=== PATIENT | female | born 1965 | race Caucasian/White ===

== ENCOUNTER → 2016-09-17 | Outpatient (CLI) | payer BC ==
[~2016-09-17] MED LIST: AMLO10TA2 PO; ASPI-557 PO; ESCI20TA30 PO; MONT10TA15 PO; MV-M1TAB18 PO; OLME1TAB10 PO; PRAV40TA3 PO; RANI150T7 PO
== END ==
LOC: WC.BC 15:00
DX: Z12.31 Encounter for screening mammogram for malignant neoplasm of breast (principal); N64.59 Other signs and symptoms in breast
CPT/HCPCS: 77063; G0202

== ENCOUNTER 2017-02-22 07:30 | Inpatient (IN) ==
[2017-03-10] MEDS ORDERED: LIDOCAINE 1% (10mg/ml) 2mL INJ PF SDV ID ONE (06:00)
[2017-03-10] MEDS ORDERED: NOZIN NASAL SWAB NAS ONE ×2 (06:00→14:01)
[2017-03-10] MEDS ORDERED: DEXAMETHASONE 4 MG/ML INJECTION IVP ONE (06:00)
[2017-03-10] MEDS ORDERED: CLINDAMYCIN PB 900 MG/50 ML BAG IV ONE (06:00)
[2017-03-10] MEDS ORDERED: FAMOTIDINE PB 20 MG/50 ML BAG IV ONE (06:00)
[2017-03-10] MEDS ORDERED: ACETAMINOPHEN 500 MG TABLET PO ONE (06:00)
[2017-03-10] MEDS ORDERED: ONDANSETRON 4 MG/2 ML INJECTION IVP ONE (06:00)
[2017-03-10] MEDS ORDERED: METOCLOPRAMIDE 10mg/2ml INJECTION IVP ONE (06:00)
[2017-03-10] MEDS ORDERED: EPINEPHrine PF 0.25 MG, BUPIVACAINE 0.25% PF 30 ML, MORPHINE SULFATE 15 MG, KETOROLAC I... OPSITE ONE (08:00)
[2017-03-10 08:26] VITALS: BMI 41.7
[2017-03-10] MEDS: LR 1,000 ML IV SCH ×2 (08:55→11:55)
--- NOTE | 2017-03-10 10:15 | Anesthesia Preoperative Report ---
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 Proposed Procedure: Right Total Knee Replacement NPO Since Date: 03/10/17 NPO Since Time: 00:00 Allergies/Adverse Reactions: Allergies Allergy/AdvReac Type Severity Reaction Status Date / Time Penicillins Allergy Mild RASH Verified 03/10/17 08:32 levofloxacin Allergy Unknown Rash Verified 03/10/17 08:32 tetracycline AdvReac Unknown Gastrointestinal Verified 03/10/17 08:32 Upset - Vital Signs Vital Signs: Temperature 97.7 F 03/10/17 08:26 Pulse Rate 76 03/10/17 08:39 Respiratory Rate 20 03/10/17 08:26 Blood Pressure 147/72 H 03/10/17 08:26 Pulse Oximetry 97 03/10/17 08:26 Height and Weight: Height 5 ft 3.5 in Weight 108.6 kg Body Mass Index 41.7 - Medications Inpatient Medications: Current Medications Lactated Ringer's (Lactated Ringers) 1,000 mls @ 50 mls/hr IV .Q20H PROSPER Last Admin: 03/10/17 08:55 Dose: 50 mls/hr Tranexamic Acid 1,000 mg/ (Sodium Chloride) 110 mls @ 0 mls/hr TOP INTRAOP ONE PRN Reason: As Directed Stop: 03/10/17 16:05 Sodium Chloride (Iv Flush) 10 - 80 ml IV PRN PRN PRN Reason: [place] Home Medications: Home Medications Medication Instructions Recorded Confirmed Type Montelukast Sodium [Singulair] 10 mg PO HS #0 03/09/11 03/10/17 History Amlodipine Besylate 10 mg PO 1000 #0 tab 09/10/15 03/10/17 History Aspirin [Aspir 81] 1 tab PO HS #0 tab 09/10/15 03/10/17 History Escitalopram Oxalate 1 tab PO 1000 #0 tab 09/10/15 03/10/17 History Multivitamin [Multi-Day Vitamins] 1 tab PO 1000 #30 tab 09/29/16 03/10/17 History [place]-3 Fatty Acids [Fish Oil] 1 cap PO DAILY #0 09/29/16 03/10/17 History Olmesartan/Hydrochlorothiazide 1 each PO 1000 02/16/17 03/10/17 History [Benicar Hct 40-12.5 mg Tablet] Protonix (Pantoprazole)40 mg 40 mg PO DAILY tab 02/16/17 03/10/17 History tablet,delayed release cholecalciferol (vitamin D3) 5,000 5,000 unit PO 1000 tab 02/16/17 03/10/17 History unit tablet Is Patient on Beta Todd?: No - Medical History Respiratory: Reports: Asthma (well controlled with singulair) Cardiovascular: Reports: Hypertension Gastrointestional: Reports: Gastroesophageal Reflux Disease (well controlled with meds), Morbid Obesity Neuro/Musculoskeletal: Reports: Back Problems (sacral pain) Renal/Endocrine: Reports: Diabetes Mellitus Type 2 (Pre-diabetes) - Surgical History GI Surgery/Treatments: Reports: Colonoscopy (polyps) Musculoskeletal Surgery/Tx: Reports: Knee Arthroscopy (x2), Other (ganglion of wrist) Reproductive Surgery/Treatment: Reports: Hysterectomy (robotic 2010) Anesthesia Reactions: None Hx Family Anesthesia Reaction: No History of Motion Sickness: No - Social History Smoking Status: Former smoker Substance Use Type: does not use - Pertinent Findings Laboratory: CBC and BMP 03/10/17 08:37 EKG: Sinus Rhythm - Physical Exam Respiratory Exam: Present: lungs clear, bilateral breath sounds equal Cardiovascular Exam: Present: regular rate and rhythm, no murmur - Airway Assessment Mallampati Score: II TMD: 2 Fingerbreadths Neck Extension: fair Overall Assessment: may be difficult intubation - Plan Anesthesia: Neuroaxial Regional/Trunk Block: Spinal - Discussion Discussion: Discussed risks/options/alternatives of anesthesia and questions answered. Patient consents. Nursing pain assessment noted. Present for Discussion: family member Attestation Statement: Prior to the delivery of any anesthetic medication, I examined the patient, developed the plan, obtained the patient's consent and discussed the risk and benefits of the procedure with the patient/guardian. - Additional Information Seen by Anesthesia: Yes
[2017-03-10] MEDS ORDERED: PROPOFOL 500 MG/50 ML VIAL IV ONE (10:27)
[2017-03-10] MEDS ORDERED: MIDAZOLAM 2mg/2ml INJECTION ONE (10:59)
[2017-03-10] MEDS ORDERED: FentaNYL 100 MCG/2 ML INJECTION ONE (11:00)
[2017-03-10] MEDS ORDERED: KETAMINE 500 MG/10 ML INJECTION ONE (11:09)
[2017-03-10] MEDS ORDERED: VANCOMYCIN 1,000 MG INJECTION IAR ONE (11:57)
--- NOTE | 2017-03-10 12:35 | Operative Note ---
- Procedure Preoperative Diagnosis: Right knee primary degenerative joint disease Postoperative Diagnosis: Same as preoperative diagnosis. Surgeon: Rubén Gallegos MD Senior Staff Consultant: Alex Palomino Complications: None. Anesthesia: TIVA Estimated Blood Loss: See Anesthesia Record. Fluids: Please see Anesthesia Record. Description of Procedure: Mrs. Knowles and her right knee were identified and marked in the preoperative holding area. She was brought back to the operating suite after a saphenous nerve block was placed in the preoperative holding area. Spinal anesthetic was administered and she was placed supine on the operating table. The right lower extremity was prepped and draped in my normal sterile fashion. Timeout was performed. The [employer] robot was used during the surgery. She had a fixed varus deformity with flexion contracture of approximately 10. A standard anterior midline incision followed by medial parapatellar arthrotomy was performed. Anterior fat pad and meniscus were removed. The patella was resurfaced to a size 32. Tibial and femoral arrays were placed both within the original incision. Checkpoints were then placed both in the femur and the tibia. The bone was then registered with the [employer] robot. Osteophytes were removed and gaps were captured both 90 and 0 with correction. [employer] robotic software was used to manipulate the components by adding 1 of varus to the femur and 2 of varus to the tibia. We also dropped the tibia as well as taken one extra millimeter distal femoral bone. The [employer] robotic arm was then used to assist with the bone cuts. Posterior osteophytes and remaining meniscus were removed. Trial components were placed. We used a 3 femur and a 3 tibia with a 9 mm spacer. She tracked well and was well balanced throughout range of motion. The leg was exsanguinated and the tourniquet inflated to 250 mmHg. The bone was prepared for cementing and components were cemented into place and allowed to cure in extension. The tourniquet was let down and hemostasis obtained with electrocautery. The knee was ranged one more time to ensure good stability, balance and patellar tracking. 1 g of TXA was allowed to sit in the wound for 5 minutes and then suctioned out. 1 g of vancomycin powder was then placed into the knee joint. The capsulotomy was then closed with #1 Vicryl. I then left my employment assistant to close the subcutaneous tissue with 2-0 Vicryl. Running 4-0 Monocryl will be used in the subcuticular layer. Dermabond will be used on the skin followed by sterile dressing. After drapes are removed patient will be taken to recovery room under the care of anesthesia.
[2017-03-10] MEDS ORDERED: HYDROMORPHONE 2 MG/ML INJECTION ONE (12:44)
[2017-03-10] MEDS ORDERED: PROPOFOL 0 ML ONE (12:51)
[2017-03-10] MEDS ORDERED: PROPOFOL 1,000 MG/100 ML VIAL IV ONE (12:55)
--- NOTE | 2017-03-10 13:14 | Anesthesia Procedure Note ---
Peripheral Nerve Blockade - Procedure Physician: Zuhair Gallegos MD Date: 03/10/17 Surgical Procedure: Right total Knee replacement Discussion: Discussed risks/options/alternatives of anesthesia and questions answered. Patient consents. Nursing pain assessment noted. Block Start: 13:08 Block Stop: 13:10 Blocked Employed: Adductor Canal Indication: Post-Operative Pain Approach: Right Side Confirmed Position: Supine Patient: Consent, Risks/Benefits Discussed, Informed, Post Block Act. Discussed IV Sedation: No Sedation: Awake Initial Vital Signs: Temperature 97.7 F 03/10/17 08:26 Temperature Source Oral 03/10/17 08:26 Pulse Rate 84 03/10/17 08:26 Respiratory Rate 20 03/10/17 08:26 Blood Pressure 147/72 H 03/10/17 08:26 Blood Pressure Mean 97 03/10/17 08:26 Blood Pressure Position Sitting 03/10/17 08:26 Pulse Oximetry 97 03/10/17 08:26 Oxygen Delivery Method 03/10/17 08:26 Post Vital Signs: Temperature 97.7 F 03/10/17 08:26 Pulse Rate 76 03/10/17 08:39 Respiratory Rate 20 03/10/17 08:26 Blood Pressure 147/72 H 03/10/17 08:26 Pulse Oximetry 97 03/10/17 08:26 Initial Pain Pain Score: 3 Post Block Pain Score: 2 Ultrasound Used?: Yes - Injectate Ropivacaine (%): 0.5 Ropivacaine (mL): 25 Was Epi 1:200,000 Used?: No Injection: Injection made incrementally with constant monitoring and aspiration every ml
[2017-03-10] MEDS ORDERED: DiphenhydrAMINE 50 MG/ML INJECTION IVP PRN ×2 (13:27→14:01)
[2017-03-10] MEDS ORDERED: ONDANSETRON 4 MG/2 ML INJECTION IVP PRN (13:27)
[2017-03-10] MEDS: HYDROMORPHONE 2 MG/ML INJECTION IVP PRN ×2 (13:30→13:42)
[2017-03-10] MEDS ORDERED: WARFARIN - PHARMACY CONSULT MC ONE ×2 (14:01→14:15)
[2017-03-10] MEDS ORDERED: LORazepam 1 MG TABLET PO PRN (14:01)
[2017-03-10] MEDS ORDERED: INSULIN ASPART 100unit/ml INJECTION SQ PRN (14:01)
--- NOTE | 2017-03-10 14:07 | XRay Report ---
EXAM: XR knee RT 2V HISTORY: postoperative image TECHNIQUE: Two views of the right knee were obtained. ENCOUNTER: Initial COMPARISON: No prior studies available for comparison. FINDINGS: There is a right total prosthesis in place, the radiopaque components of the right total knee prosthesis appear to be in good position showing no evidence of loosening or failure. The osseous structures are normal density showing no acute fractures or focal destructive lesions. There is mild soft tissue swelling about the right knee and subcutaneous emphysema which appears postsurgical in etiology. A small knee joint effusion is present. IMPRESSION: 1. Status post right total knee arthroplasty. 2. Subcutaneous emphysema and mild soft tissue swelling which appears postsurgical in etiology. 3. Small suprapatellar bursa effusion. .
[2017-03-10] MEDS: PANTOPRAZOLE 40 MG TABLET PO SCH (14:22)
[2017-03-10] MEDS: NOZIN NASAL SWAB NAS SCH ×2 (14:24→23:00)
[2017-03-10] MEDS: NS 1,000 ML IV SCH (14:31)
[2017-03-10] MEDS: ACETAMINOPHEN 325 MG TABLET PO SCH ×3 (14:32→20:45)
--- NOTE | 2017-03-10 14:59 | Pharmacy Consult ---
Pharmacy Consult-Warfarin - Consult Information COUMADIN CONSULT (Initial): Dx: History of DVT Baseline INR = n/a, goal INR of 2.0 - 2.5 Will give Warfarin 5mg today. Thank you.
[2017-03-10] MEDS ORDERED: FALL RISK - PHARMACY CONSULT XX ONE (15:02)
[2017-03-10] MEDS: Oxycodone *IR* 5 MG TABLET PO PRN ×2 (15:46→20:46)
[2017-03-10] MEDS ORDERED: WARFARIN 5 MG TABLET PO ONE (16:00)
[2017-03-10] MEDS ORDERED: TRANEXAMIC ACID 1,000 MG in NS 100 ML TOP ONE (16:04)
[2017-03-10] MEDS ORDERED: SALINE FLUSH 10ml SYRINGE IV PRN (16:04)
[2017-03-10] MEDS ORDERED: ROPIVACAINE 0.5% (5mg/ml) 30ml INJ ONE (16:10)
[2017-03-10] MEDS: CLINDAMYCIN PB 900 MG/50 ML BAG IV SCH ×2 (17:02→23:01)
--- NOTE | 2017-03-10 20:28 | Anesthesia Postoperative Note ---
- Date and Time Date: 03/10/17 Time: 20:27 - Status Patient Participated in Evaluation: Patient Participated in Person Vital Signs: Temperature 96.2 F L 03/10/17 14:25 Pulse Rate 67 03/10/17 17:42 Respiratory Rate 14 03/10/17 16:22 Blood Pressure 120/66 03/10/17 17:42 Pulse Oximetry 93 03/10/17 17:42 Respiratory Function: Airway Patent Cardiovascular Function: Regular Pulse Mental Status: Lethargic (pt complains of being overly drowsy) Pain Intensity: 4 Hydration: Taking PO Fluids Complications During Recover: None Apparent - Follow-Up Instructions Instructions: Per Surgeon
[2017-03-10] MEDS: DOCUSATE SODIUM 100 MG CAPSULE PO SCH (20:45)
[2017-03-10] MEDS: MONTELUKAST 10 MG TABLET PO SCH (20:45)
[2017-03-10] MEDS: SENNOSIDES 8.6 MG TABLET PO SCH (20:45)
[2017-03-10] MEDS: ENOXAPARIN 40 MG/0.4 ML INJECTION SQ SCH (20:46)
[2017-03-11] MEDS ORDERED: RANITIDINE 150 MG TABLET PO ONE (01:21)
[2017-03-11] MEDS ORDERED: CALCIUM CARBONATE Chewable 500mg TABLET PO PRN (01:23)
[2017-03-11] MEDS ORDERED: MAG-AL + SIM ORAL LIQUID 30ml PO PRN (01:23)
[2017-03-11] MEDS: NS 1,000 ML IV SCH ×3 (03:44→15:38)
[2017-03-11] MEDS: CLINDAMYCIN PB 900 MG/50 ML BAG IV SCH (03:44)
[2017-03-11] MEDS: Oxycodone *IR* 5 MG TABLET PO PRN ×5 (03:55→23:32)
[2017-03-11] MEDS: PANTOPRAZOLE 40 MG TABLET PO SCH (08:20)
[2017-03-11] MEDS: NOZIN NASAL SWAB NAS SCH ×4 (08:20→21:16)
--- NOTE | 2017-03-11 08:27 | Orthopedic Progress Note ---
Date: Subjective/Severity of Illness: Esthela is a little groggy this AM. She states she has not been able to produce much urine. The nurse just took her to the bathroom, she missed the hat , but stated that she did have more urine production then previous. Overall, her pain is acceptable, but she has not been out of bed yet. Her BUN/Creat are WNL, IV NS was increased to 100/hr. She is taking PO well. She denies CP/SOB, dysuria, hematuria or previous kidney issues. K was 3.2 and PO replacement has been ordered with a repeat lab at noon. Orthopedic Objective PO Vital signs: Temperature 97.1 F 03/11/17 03:49 Pulse Rate 64 03/11/17 03:49 Respiratory Rate 18 03/11/17 03:49 Blood Pressure 128/67 03/11/17 03:49 Pulse Oximetry 97 03/11/17 06:05 Height and Weight: Height 5 ft 3.5 in Weight 252 lb 6.868 oz Body Mass Index 41.7 - Constitutional General Appearance: Present: alert, orientated x3, no acute distress - Respiratory Exam Present: non-labored - Cardiovascular Exam Present: pedal pulses intact Capillary Refill: < 2-3 Seconds - Abdominal Exam Absent: tenderness - Extremities Exam Extremities: Present: pulses intact, joint swelling. Absent: calf tenderness - Knee Exam Knee Exam: Present: effusion - Surgical Site Incision: Mepilex dressing intact - Integumentary Exam Present: pink, warm, dry - Lymphatic Lymphatic: Absent: lymphedema - Neurological Exam Present: intact to light touch, no deficits - Psychiatric Exam Present: normal affect - Labs Result Diagrams: 03/11/17 04:02 03/11/17 04:02 Abnormal lab results 03/10/17 03/11/17 03/11/17 Range/Units 08:37 04:02 04:02 RBC 3.23 L (4.00-5.20) M/MM3 Hgb 9.4 L D (12-16) GM/DL Hct 29.9 L D (36-46) % Lymph % (Auto) 51.0 H (23-45) % [place] % (Auto) 10.9 H (0-9.0) % Neut # (Auto) 1.7 L (1.8-7.7) T/MM3 INR 1.77 H (0.99-1.21) Sodium (134-144) MEQ/L Potassium (3.6-5) MEQ/L Chloride (98-107) MEQ/L Calculated Osmolality (261-280) MOSM/KG Calcium (8.4-10.2) MG/DL 03/11/17 Range/Units 04:02 RBC (4.00-5.20) M/MM3 Hgb (12-16) GM/DL Hct (36-46) % Lymph % (Auto) (23-45) % [place] % (Auto) (0-9.0) % Neut # (Auto) (1.8-7.7) T/MM3 INR (0.99-1.21) Sodium 146 H (134-144) MEQ/L Potassium 3.2 L (3.6-5) MEQ/L Chloride 110 H (98-107) MEQ/L Calculated Osmolality 282 H (261-280) MOSM/KG Calcium 6.1 L (8.4-10.2) MG/DL H & H 03/10/17 03/11/17 Range/Units 08:37 04:02 Hgb 12.7 9.4 L D (12-16) GM/DL Hct 38.9 29.9 L D (36-46) % Coagulation 03/11/17 Range/Units 04:02 INR 1.77 H (0.99-1.21) Orthopedic Assessment and Plan (1) Obesity, morbid, BMI 40.0-49.9 Status: Acute (2) Primary osteoarthritis of right knee Status: Acute Assessment and Plan: Lovenox/ Coumadin for DVT prevention. INR is 1.77 today. Will need to reassess before discharge to see if she needs Lovenox. PT/OT for mobility Continue pain control and bowel management Increase NS to 100/hr; give her routine Benicar; mobilize, repeat BUN/Creatine at noon. She was bladder scanned this AM after void and had 150 roughly according to verbal report from nurse. Replace her K 20meq PO BID. (3) Pre-diabetes Status: Chronic Assessment and Plan: Diabetic diet. Continue home meds (4) Vitamin D deficiency, unspecified Status: Chronic (5) Anxiety Status: Chronic Assessment and Plan: continue home meds. (6) GERD (gastroesophageal reflux disease) Status: Chronic Assessment and Plan: continue home meds (7) HTN (hypertension) Status: Chronic Assessment and Plan: continue home meds - Anticoagulation Therapy Anticoagulation: Coumadin therapy with Lovenox bridge x30 days (INR is 1.77) Hospital Course Summary Disclaimer: The visit summary below is not to be considered part of the above Progress Note.
[2017-03-11] MEDS: ONDANSETRON 4 MG/2 ML INJECTION IVP PRN ×3 (09:00→20:27)
--- NOTE | 2017-03-11 09:17 | Pharmacy Consult ---
Pharmacy Consult-Warfarin - Laboratory Information 03/11/17 04:02 INR 1.77 H - Consult Information Warfarin 2mg po ordered for noon today. Thank you.
[2017-03-11] MEDS: OLMESARTAN PO SCH (09:50)
[2017-03-11] MEDS: HCTZ PO SCH (09:50)
[2017-03-11] MEDS: DOCUSATE SODIUM 100 MG CAPSULE PO SCH ×2 (09:51→20:39)
[2017-03-11] MEDS: ACETAMINOPHEN 325 MG TABLET PO SCH ×4 (09:51→20:28)
[2017-03-11] MEDS: ESCITALOPRAM 20 MG TABLET PO SCH (09:51)
[2017-03-11] MEDS: ASPIRIN *EC* 81 MG TABLET PO SCH (09:51)
[2017-03-11] MEDS: AMLODIPINE 10 MG TABLET PO SCH (09:53)
[2017-03-11] MEDS: POLYETHYL GLYCOL 3350 17gm PACKET PO SCH (09:54)
[2017-03-11] MEDS ORDERED: WARFARIN 2 MG TABLET PO SCH (12:00)
[2017-03-11] MEDS: [UNRECOGNIZED DRUG - OTHER] PO SCH (17:12)
[2017-03-11] MEDS: ENOXAPARIN 40 MG/0.4 ML INJECTION SQ SCH (20:27)
[2017-03-11] MEDS: SENNOSIDES 8.6 MG TABLET PO SCH (20:28)
[2017-03-11] MEDS: MONTELUKAST 10 MG TABLET PO SCH (20:30)
[2017-03-11] MEDS: NAPROXEN 220 MG TABLET PO PRN (20:38)
[2017-03-12] MEDS: ONDANSETRON 4 MG/2 ML INJECTION IVP PRN (04:21)
[2017-03-12] MEDS: Oxycodone *IR* 5 MG TABLET PO PRN (04:21)
[2017-03-12] MEDS: PANTOPRAZOLE 40 MG TABLET PO SCH (06:31)
[2017-03-12] MEDS: NOZIN NASAL SWAB NAS SCH ×3 (06:31→21:18)
--- NOTE | 2017-03-12 07:04 | Pharmacy Consult ---
Pharmacy Consult-Warfarin - Laboratory Information 03/11/17 03/12/17 04:02 03:50 INR 1.77 H 1.13 - Consult Information We will give warfarin 5mg p.o. today. Not sure of INR on 03/11 so we will continue normal dosing. Thanks
--- NOTE | 2017-03-12 07:39 | Orthopedic Progress Note ---
Date: Subjective/Severity of Illness: Mrs. Knowles looks come full this morning. She is frustrated because she feels she is behind in her recovery. She is ambulating to the nurse's desk with assistance. Oxycodone is making her nauseous. She also has concerns about going home to grandmother's house with dementia. Orthopedic Objective Vital signs: Temperature 97 F 03/12/17 04:00 Pulse Rate 68 03/12/17 04:00 Respiratory Rate 16 03/12/17 04:00 Blood Pressure 137/80 03/12/17 04:00 Pulse Oximetry 93 03/12/17 04:00 Height and Weight: Height 5 ft 3.5 in Weight 114.5 kg Body Mass Index 41.7 - Constitutional General Appearance: Present: alert, orientated x3, no acute distress - Respiratory Exam Present: non-labored - Cardiovascular Exam Present: pedal pulses intact Capillary Refill: < 2-3 Seconds - Abdominal Exam Absent: tenderness - Integumentary Exam Present: pink, warm, dry Comments: Normal postoperative ecchymosis around the knee. Calf is soft and nontender. - Lymphatic Lymphatic: Absent: lymphedema - Neurological Exam Present: intact to light touch, no deficits - Wound Management Right Knee Primary Dressing: Mepilex - Labs Result Diagrams: 03/12/17 03:50 03/12/17 03:50 Abnormal lab results 03/11/17 03/12/17 03/12/17 Range/Units 11:42 03:50 03:50 RBC 3.32 L (4.00-5.20) M/MM3 Hgb 9.8 L (12-16) GM/DL Hct 30.7 L (36-46) % BUN 18.0 H (7-17) MG/DL Glucose 137 H 116 H (65-110) MG/DL Calcium 7.9 L D 8.2 L (8.4-10.2) MG/DL Specimen Hemolysis 28 H (0-25) H & H 03/10/17 03/11/17 03/12/17 Range/Units 08:37 04:02 03:50 Hgb 12.7 9.4 L D 9.8 L (12-16) GM/DL Hct 38.9 29.9 L D 30.7 L (36-46) % Coagulation 03/11/17 03/12/17 Range/Units 04:02 03:50 INR 1.77 H 1.13 (0.99-1.21) Orthopedic Assessment and Plan (1) HTN (hypertension) Status: Chronic Assessment and Plan: continue home meds (2) GERD (gastroesophageal reflux disease) Status: Chronic Assessment and Plan: continue home meds (3) Anxiety Status: Chronic Assessment and Plan: continue home meds. (4) Vitamin D deficiency, unspecified Status: Chronic (5) Pre-diabetes Status: Chronic Assessment and Plan: Diabetic diet. Continue home meds (6) Primary osteoarthritis of right knee Status: Acute Assessment and Plan: Lovenox/ Coumadin for DVT prevention. INR is 1.13 today. Will need to reassess before discharge to see if she needs Lovenox. PT/OT for mobility Continue pain control and bowel management Replace her K 20meq PO BID. We will get an IR U screen today. Continue to mobilize with physical therapy. I changed her pain medications to [place] to see if this gives her better pain relief without the nausea. (7) Obesity, morbid, BMI 40.0-49.9 Status: Acute - Anticoagulation Therapy Anticoagulation: other (Lovenox until INR is therapeutic on warfarin) Hospital Course Summary Disclaimer: The visit summary below is not to be considered part of the above Progress Note.
[2017-03-12] MEDS: DiphenhydrAMINE 25 MG CAPSULE PO PRN ×3 (08:03→22:33)
[2017-03-12] MEDS: [UNRECOGNIZED DRUG - OTHER] PO SCH (09:12)
[2017-03-12] MEDS: ESCITALOPRAM 20 MG TABLET PO SCH (09:12)
[2017-03-12] MEDS: DOCUSATE SODIUM 100 MG CAPSULE PO SCH ×2 (09:12→21:18)
[2017-03-12] MEDS: POLYETHYL GLYCOL 3350 17gm PACKET PO SCH (09:12)
[2017-03-12] MEDS: OLMESARTAN PO SCH (09:13)
[2017-03-12] MEDS: HCTZ PO SCH (09:13)
[2017-03-12] MEDS: AMLODIPINE 10 MG TABLET PO SCH (09:13)
[2017-03-12] MEDS: HYDROCODONE/APAP 7.5 MG/325 MG TABLET PO PRN ×3 (09:13→19:32)
[2017-03-12] MEDS: ASPIRIN *EC* 81 MG TABLET PO SCH (09:14)
[2017-03-12] MEDS ORDERED: WARFARIN 5 MG TABLET PO SCH (12:00)
[2017-03-12] MEDS ORDERED: BISACODYL 10 MG SUPPOSITORY RECTALLY SCH (20:00)
[2017-03-12] MEDS: SENNOSIDES 8.6 MG TABLET PO SCH (21:19)
[2017-03-12] MEDS: MONTELUKAST 10 MG TABLET PO SCH (21:20)
[2017-03-12] MEDS: ENOXAPARIN 40 MG/0.4 ML INJECTION SQ SCH (21:20)
[2017-03-12] MEDS: NAPROXEN 220 MG TABLET PO PRN (22:33)
[2017-03-13] MEDS: SENNOSIDES 8.6 MG TABLET PO PRN (03:00)
[2017-03-13] MEDS: HYDROCODONE/APAP 7.5 MG/325 MG TABLET PO PRN (03:00)
[2017-03-13] MEDS: NOZIN NASAL SWAB NAS SCH ×3 (06:14→21:40)
[2017-03-13] MEDS: PANTOPRAZOLE 40 MG TABLET PO SCH (06:14)
--- NOTE | 2017-03-13 07:24 | Pharmacy Consult ---
Pharmacy Consult-Warfarin - Laboratory Information 03/11/17 03/12/17 03/13/17 04:02 03:50 04:21 INR 1.77 H 1.13 1.15 - Consult Information INR is not responding well to previous warfarin doses so we will increase dose of warfarin to 7.5mg p.o. today. Thanks
[2017-03-13] MEDS: OLMESARTAN PO SCH (09:30)
[2017-03-13] MEDS: AMLODIPINE 10 MG TABLET PO SCH (09:30)
[2017-03-13] MEDS: ESCITALOPRAM 20 MG TABLET PO SCH (09:30)
[2017-03-13] MEDS: POLYETHYL GLYCOL 3350 17gm PACKET PO SCH (09:30)
[2017-03-13] MEDS: ASPIRIN *EC* 81 MG TABLET PO SCH (09:30)
[2017-03-13] MEDS: DOCUSATE SODIUM 100 MG CAPSULE PO SCH ×2 (09:30→21:40)
[2017-03-13] MEDS: DiphenhydrAMINE 25 MG CAPSULE PO PRN ×3 (09:30→21:41)
[2017-03-13] MEDS: HCTZ PO SCH (09:30)
[2017-03-13] MEDS: [UNRECOGNIZED DRUG - OTHER] PO SCH (09:31)
--- NOTE | 2017-03-13 11:44 | Orthopedic Progress Note ---
Date: Subjective/Severity of Illness: Started to have a rash develop on her trunk yesterday morning. The rash seemed to start before her medication changed yesterday. She slowly progressing with physical therapy. Pain control is better today. She's not had a bowel movement yet. Orthopedic Objective Vital signs: Temperature 96.9 F 03/13/17 08:00 Pulse Rate 72 03/13/17 08:00 Respiratory Rate 16 03/13/17 08:00 Blood Pressure 126/65 03/13/17 08:00 Pulse Oximetry 94 03/13/17 08:00 Height and Weight: Height 5 ft 3.5 in Weight 115.1 kg Body Mass Index 41.7 - Constitutional General Appearance: Present: alert, orientated x3, no acute distress - Respiratory Exam Present: non-labored - Cardiovascular Exam Present: pedal pulses intact Capillary Refill: < 2-3 Seconds - Abdominal Exam Absent: tenderness - Integumentary Exam Present: pink, warm, dry - Lymphatic Lymphatic: Absent: lymphedema - Neurological Exam Present: intact to light touch, no deficits - Wound Management Right Knee Primary Dressing: Mepilex - Labs Result Diagrams: 03/13/17 04:21 03/12/17 03:50 Abnormal lab results 03/13/17 Range/Units 04:21 RBC 3.34 L (4.00-5.20) M/MM3 Hgb 9.8 L (12-16) GM/DL Hct 31.1 L (36-46) % H & H 03/10/17 03/11/17 03/12/17 Range/Units 08:37 04:02 03:50 Hgb 12.7 9.4 L D 9.8 L (12-16) GM/DL Hct 38.9 29.9 L D 30.7 L (36-46) % 03/13/17 Range/Units 04:21 Hgb 9.8 L (12-16) GM/DL Hct 31.1 L (36-46) % Coagulation 03/11/17 03/12/17 03/13/17 Range/Units 04:02 03:50 04:21 INR 1.77 H 1.13 1.15 (0.99-1.21) Orthopedic Assessment and Plan (1) HTN (hypertension) Status: Chronic Assessment and Plan: continue home meds (2) GERD (gastroesophageal reflux disease) Status: Chronic Assessment and Plan: continue home meds (3) Anxiety Status: Chronic Assessment and Plan: continue home meds. (4) Vitamin D deficiency, unspecified Status: Chronic (5) Pre-diabetes Status: Chronic Assessment and Plan: Diabetic diet. Continue home meds (6) Primary osteoarthritis of right knee Status: Acute Assessment and Plan: Lovenox/ Coumadin for DVT prevention. Will need to reassess before discharge to see if she needs Lovenox. PT/OT for mobility Continue pain control and bowel management, we'll try enema today Continue to mobilize with physical therapy. Continue Benadryl and observation for the rash. I do not see any obvious medications that could be causing her rash. (7) Obesity, morbid, BMI 40.0-49.9 Status: Acute Hospital Course Summary Disclaimer: The visit summary below is not to be considered part of the above Progress Note.
[2017-03-13] MEDS ORDERED: WARFARIN 7.5 MG TABLET PO SCH (12:00)
[2017-03-13] MEDS: NAPROXEN 220 MG TABLET PO PRN ×2 (13:00→21:40)
[2017-03-13] MEDS: SENNOSIDES 8.6 MG TABLET PO SCH (21:40)
[2017-03-13] MEDS: MONTELUKAST 10 MG TABLET PO SCH (21:41)
[2017-03-13] MEDS: ENOXAPARIN 40 MG/0.4 ML INJECTION SQ SCH (21:42)
[2017-03-14] MEDS: ONDANSETRON 4 MG/2 ML INJECTION IVP PRN (01:48)
[2017-03-14] MEDS: PANTOPRAZOLE 40 MG TABLET PO SCH (06:41)
[2017-03-14] MEDS: NOZIN NASAL SWAB NAS SCH ×2 (06:41→16:13)
[2017-03-14] MEDS: DiphenhydrAMINE 25 MG CAPSULE PO PRN (06:54)
[2017-03-14 07:33] VITALS: O2SAT 95
[2017-03-14] MEDS: NAPROXEN 220 MG TABLET PO PRN (08:32)
[2017-03-14] MEDS: SENNOSIDES 8.6 MG TABLET PO PRN (08:32)
[2017-03-14] MEDS: POLYETHYL GLYCOL 3350 17gm PACKET PO SCH (08:32)
[2017-03-14] MEDS: ASPIRIN *EC* 81 MG TABLET PO SCH (08:32)
[2017-03-14] MEDS: DOCUSATE SODIUM 100 MG CAPSULE PO SCH (08:32)
[2017-03-14] MEDS: [UNRECOGNIZED DRUG - OTHER] PO SCH (08:33)
--- NOTE | 2017-03-14 09:06 | Ultrasound Report ---
Indication: HX DVT, PAIN IN RIGHT LEG PROCEDURE: US venous doppler LE BI: Encounter: Initial Comparison: None. Multiple transverse and longitudinal Doppler and color flow and spectral pulsed Doppler ultrasound images of the deep venous system of the lower extremities were obtained and show normal spontaneous, augmentable and compressible flow throughout the popliteal, superficial and common femoral veins. There is no evidence for superficial thrombophlebitis. There are no abnormal filling defects or other findings to indicate the presence of significant deep venous thrombosis. IMPRESSION: No Doppler evidence of left or right lower extremity deep venous thrombosis. .
--- NOTE | 2017-03-14 09:13 | Pharmacy Consult ---
Pharmacy Consult-Warfarin - Laboratory Information 03/11/17 03/12/17 03/13/17 04:02 03:50 04:21 INR 1.77 H 1.13 1.15 03/14/17 07:17 INR 1.27 H COUMADIN CONSULT (Recurring): Dx: History of DVT Baseline INR = n/a, goal INR of 2.0 - 2.5 Will give Warfarin 7.5mg today. Thank you.
[2017-03-14] MEDS: AMLODIPINE 10 MG TABLET PO SCH (09:51)
[2017-03-14] MEDS: ESCITALOPRAM 20 MG TABLET PO SCH (09:51)
[2017-03-14] MEDS: OLMESARTAN PO SCH (09:51)
[2017-03-14] MEDS: HCTZ PO SCH (09:51)
[2017-03-14] MEDS ORDERED: DIPHENHYDRAMINE 2% CREAM 28gm TOP PRN (10:06)
[2017-03-14] MEDS ORDERED: WARFARIN 7.5 MG TABLET PO SCH (12:00)
[2017-03-14 12:39] VITALS: RESP 18
--- NOTE | 2017-03-14 13:13 | Discharge Summary ---
Orthopedic Discharge Info Date of admission: 03/10/17 08:07 Primary care physician: Jinny Oakley DO Attending Physician: Zuhair Gallegos MD Consults: 03/10/17 08:13 Consult to Anesthesiology [CONS] Routine Consulting Provider: TAINA Shah Reason For Exam: Preoperative Assessment 03/10/17 14:01 Case Management Consult [CONS] Routine Reason For Exam: Discharge Planning DME-Walker [CONS] Routine Height: 5 ft 3.5 in Weight: 239 lb 6.752 oz Comment: change dressing in 2 weeks Total Joint Outpatient Therapy [CONS] Routine Comment: change dressing in 2 weeks 03/12/17 07:24 IRU Screening [Inpatient Rehab Screening] [CONS] Routine - Discharge Diagnosis (1) Obesity, morbid, BMI 40.0-49.9 Status: Acute (2) Primary osteoarthritis of right knee Status: Acute (3) Pre-diabetes Status: Chronic (4) Vitamin D deficiency, unspecified Status: Chronic (5) Anxiety Status: Chronic (6) GERD (gastroesophageal reflux disease) Status: Chronic (7) HTN (hypertension) Status: Chronic - Procedures Procedures: Right TKA - Laboratory Result Diagrams: 03/13/17 04:21 03/12/17 03:50 Laboratory: Abnormal lab results 03/14/17 Range/Units 07:17 INR 1.27 H (0.99-1.21) H & H 03/10/17 03/11/17 03/12/17 Range/Units 08:37 04:02 03:50 Hgb 12.7 9.4 L D 9.8 L (12-16) GM/DL Hct 38.9 29.9 L D 30.7 L (36-46) % 03/13/17 Range/Units 04:21 Hgb 9.8 L (12-16) GM/DL Hct 31.1 L (36-46) % Coagulation 03/11/17 03/12/17 03/13/17 Range/Units 04:02 03:50 04:21 INR 1.77 H 1.13 1.15 (0.99-1.21) 03/14/17 Range/Units 07:17 INR 1.27 H (0.99-1.21) Orthopedic Discharge HPI - HPI Comments This patient was admitted for elective surgical tx of end stage degenerative joint disease that failed to respond to conservative treatment. Further details of this is found in the admission H&P. Orthopedic Hospital Course Hospital course: 03/14/17 13:11 After appropriate preoperative clearance and signing of operative consent, the patient was given IV antibiotics, according to orthopedic protocol. The patient was taken to the operating room and underwent elective joint arthroplasty. Following surgery, antibiotics were discontinued less than 24 hours according to joint protocol. Appropriate anticoagulants were initiated and SCDs added for DVT prevention. The dressing was clean, dry, and intact. Pain control was obtained via multimodal approach. Bowel motivation addressed with scheduled and PRN medications. Early mobilization was initiated through PT services. Discharge arrangements made by a collaborative effort between the patient and Case Management. Her rehab went slow which caused her to stay a bit longer. She developed a rash which was felt to likely be contact dermatitis and follow up on an outpatient basis. Her potassium was replaced with PO supplement and was WNL at discharge. Follow-up is scheduled in 2-3 weeks. Discharge instructions given by orthopedic providers and nursing staff at discharge. Discharge condition was good. Ongoing care required?: No - Postoperative Anemia patient received IVF, labs monitored daily, no intervention required, HGB drop- acceptable - Hypokalemia supplemental KCL added, K+ improved to normal limits by dismissal - Other Postoperative Events see above hospital course. Discharge Plan - Med Rec/Dispo Referrals/Follow Up: Zuhair Gallegos MD [Physician] - 04/04/17 11:30 am Harika Instructions: [facility] [place] Ortho Postop Instructions Additional Instructions: [facility] ON 03/14/2017 AT 2:45PM FOR PHYSICAL THERAPY EVAL. PLEASE COMPLETE THE PAPERWORK IN THE [facility] FOLDER PRIOR TO THE APPOINTMENT. PHONE [phone] [facility] TWICE A WEEK (MONDAYS AND THURSDAYS) BEGINNING 03/14/2017 FOR INR LAB DRAW FOR FOUR WEEKS. PHONE [phone] YOU WILL NEED TO GO TO [facility] TO HEALTH INFORMATION CLERK YOUR LOVENOX INJECTIONS. THE MEDICATION WILL COST $0. GIVE YOURSELF ONE INJECTION EACH DAY BEGINNING ON MARCH 12. CONTINUE THE INJECTIONS UNTIL THEY ARE ALL GONE OR UNTIL YOUR DOCTOR TELLS YOU THAT YOU CAN STOP TAKING THEM. Prescriptions: No Action Escitalopram Oxalate 1 tab PO 1000 #0 tab Aspirin [Aspir 81] 1 tab PO HS #0 tab Multivitamin [Multi-Day Vitamins] 1 tab PO 1000 #30 tab Olmesartan/Hydrochlorothiazide [Benicar Hct 40-12.5 mg Tablet] 1 each PO 1000 Montelukast Sodium [Singulair] 10 mg PO HS #0 Amlodipine Besylate 10 mg PO 1000 #0 tab [place]-3 Fatty Acids [Fish Oil] 1 cap PO DAILY #0 cholecalciferol (vitamin D3) 5,000 unit tablet 5,000 unit PO 1000 tab Protonix (Pantoprazole)40 mg tablet,delayed release 40 mg PO DAILY tab
--- NOTE | 2017-03-14 13:18 | Discharge Instructions ---
Discharge Plan - Med Rec/Dispo Referrals/Follow Up: Zuhair Gallegos MD [Physician] - 04/04/17 11:30 am Harika Instructions: [facility] [place] Ortho Postop Instructions Additional Instructions: [facility] ON 03/14/2017 AT 2:45PM FOR PHYSICAL THERAPY EVAL. PLEASE COMPLETE THE PAPERWORK IN THE [facility] FOLDER PRIOR TO THE APPOINTMENT. PHONE [phone] [facility] TWICE A WEEK (MONDAYS AND THURSDAYS) BEGINNING 03/14/2017 FOR INR LAB DRAW FOR FOUR WEEKS. PHONE [phone] YOU WILL NEED TO GO TO [facility] TO NUTRITION COORDINATOR YOUR LOVENOX INJECTIONS. THE MEDICATION WILL COST $0. GIVE YOURSELF ONE INJECTION EACH DAY BEGINNING ON MARCH 12. CONTINUE THE INJECTIONS UNTIL THEY ARE ALL GONE OR UNTIL YOUR DOCTOR TELLS YOU THAT YOU CAN STOP TAKING THEM. Prescriptions: New Enoxaparin Sodium [Lovenox] 40 mg SQ Q24H #5 syringe Naproxen [Aleve] 440 mg PO BID PRN #60 tab PRN Reason: Pain PEG 3350 17gm PACKET [Miralax] 17 gm PO DAILY #30 packet Hydrocodone/APAP 7.5/325 [[place] 7.5/325] 2 tab PO Q4H PRN #60 tab PRN Reason: Pain Warfarin [Coumadin] 2 tab PO NOON #60 tab Continue Escitalopram Oxalate 1 tab PO 1000 #0 tab Aspirin [Aspir 81] 1 tab PO HS #0 tab Multivitamin [Multi-Day Vitamins] 1 tab PO 1000 #30 tab Olmesartan/Hydrochlorothiazide [Benicar Hct 40-12.5 mg Tablet] 1 each PO 1000 Montelukast Sodium [Singulair] 10 mg PO HS #0 Amlodipine Besylate 10 mg PO 1000 #0 tab [place]-3 Fatty Acids [Fish Oil] 1 cap PO DAILY #0 cholecalciferol (vitamin D3) 5,000 unit tablet 5,000 unit PO 1000 tab Protonix (Pantoprazole)40 mg tablet,delayed release 40 mg PO DAILY tab
--- NOTE | 2017-03-14 13:39 | Orthopedic Progress Note ---
Date: Subjective/Severity of Illness: Esthela is seen with Dr. Gallegos today. She still feels a little bloated. She did have a small BM yesterday and was given a Fleets enema. She denies being nauseous today or vomiting. She did have nausea/vomiting in the early post op course which responded to antiemetics and switching her narcotic from Oxycodone to [place]. Her mobility has improved. Discharge plan at this point is to home. She developed a diffuse maculopapular rash throughout the abdominal area that was noted yesterday. Hydrocortisone cream has been applied, but it still persists. She denies any trouble breathing and has not had a reaction like this previously. Nursing notes it could be secondary to the soaps used to bath with. Dr. Gallegos indicated he may ask the hospitalist to come by and give an opinion. Dr. Gallegos feels it is best addressed on an outpatient basis. Orthopedic Objective PO Vital signs: Temperature 96.8 F 03/14/17 12:00 Pulse Rate 76 03/14/17 12:00 Respiratory Rate 18 03/14/17 12:00 Blood Pressure 134/68 03/14/17 12:00 Pulse Oximetry 95 03/14/17 12:00 Height and Weight: Height 5 ft 3.5 in Weight 255 lb 1.197 oz Body Mass Index 41.7 - Constitutional General Appearance: Present: alert, orientated x3, no acute distress - Respiratory Exam Present: non-labored - Cardiovascular Exam Present: pedal pulses intact - Abdominal Exam Absent: tenderness - Extremities Exam Extremities: Present: pulses intact, joint swelling. Absent: calf tenderness - Knee Exam Knee Exam: Present: effusion - Surgical Site Incision: Mepilex dressing intact - Integumentary Exam Present: pink, warm, dry - Lymphatic Lymphatic: Absent: lymphedema - Neurological Exam Present: intact to light touch, no deficits - Psychiatric Exam Present: normal affect - Wound Management Right Knee Primary Dressing: Mepilex - Labs Result Diagrams: 03/13/17 04:21 03/12/17 03:50 Abnormal lab results 03/14/17 Range/Units 07:17 INR 1.27 H (0.99-1.21) H & H 03/10/17 03/11/17 03/12/17 Range/Units 08:37 04:02 03:50 Hgb 12.7 9.4 L D 9.8 L (12-16) GM/DL Hct 38.9 29.9 L D 30.7 L (36-46) % 03/13/17 Range/Units 04:21 Hgb 9.8 L (12-16) GM/DL Hct 31.1 L (36-46) % Coagulation 03/11/17 03/12/17 03/13/17 Range/Units 04:02 03:50 04:21 INR 1.77 H 1.13 1.15 (0.99-1.21) 03/14/17 Range/Units 07:17 INR 1.27 H (0.99-1.21) Orthopedic Assessment and Plan (1) Obesity, morbid, BMI 40.0-49.9 Status: Acute (2) Primary osteoarthritis of right knee Status: Acute Assessment and Plan: Lovenox/ Coumadin for DVT prevention. Lovenox will be provided on discharge, INR is 1.27. PT/OT for mobility Continue pain control and bowel management. Dr. Gallegos asked me to order another enema for her today. Continue to mobilize with physical therapy. Continue Benadryl and observation for the rash. I do not see any obvious medications that could be causing her rash. (3) Pre-diabetes Status: Chronic Assessment and Plan: Diabetic diet. Continue home meds (4) Vitamin D deficiency, unspecified Status: Chronic (5) Anxiety Status: Chronic Assessment and Plan: continue home meds. (6) GERD (gastroesophageal reflux disease) Status: Chronic Assessment and Plan: continue home meds (7) HTN (hypertension) Status: Chronic Assessment and Plan: continue home meds - Anticoagulation Therapy Anticoagulation: Coumadin therapy with Lovenox bridge x30 days Hospital Course Summary Disclaimer: The visit summary below is not to be considered part of the above Progress Note.
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
[2017-03-14] MEDS ORDERED: METHYLPREDNISOLONE SOD SUCC 125mg/2ml INJECTION INJ ONE (15:04)
[2017-03-14] MEDS ORDERED: DiphenhydrAMINE 50 MG/ML INJECTION IVP ONE (15:05)
[2017-03-14] MEDS ORDERED: HYDROXYZINE 10 MG/5 ML PO ONE (15:05)
[2017-03-14] MEDS ORDERED: METHYLPREDNISOLONE SOD SUCC 125mg/2ml INJECTION IVP ONE (16:09)
[2017-03-14] MEDS: ENOXAPARIN 40 MG/0.4 ML INJECTION SQ SCH (16:12)
[2017-03-14] MEDS ORDERED: METHYLPREDNISOLONE SOD SUCC 125mg/2ml INJECTION IVP SCH (16:15)
[2017-03-14 18:50] VITALS: BP 131/74; PULSE 81; TEMP 97.2
== END 2017-03-14 19:15 | disposition home or self-care (01) | DRG 470 ==
LOC: SRG 03-10 08:07
PROVIDERS: ADMIT Orthopaedic Surgery; ATTEND Orthopaedic Surgery